=== PATIENT | male | born 1970 | race African-American/Black ===

== ENCOUNTER 2016-10-21 11:55 | Emergency (ER) | payer OTHER ==
[2016-10-21 12:07] VITALS: BP 126/83
[2016-10-21] MEDS ORDERED: Penicillin V Potassium 500 MG Tab PO ONE (13:03)
[2016-10-21] MEDS ORDERED: Ketorolac 60 MG/2 ML SDV IM ONE (13:03)
--- NOTE | 2016-10-21 13:09 | EDM.PDOC ---
ED HPI GENERAL MEDICAL PROBLEM - General Chief Complaint: ENT Problem Stated Complaint: DENTAL COMPLAINT Time Seen by Provider: 10/21/16 12:55 Source of Information: Reports: Patient History Limitations: Reports: No Limitations - History of Present Illness INITIAL COMMENTS - FREE TEXT/NARRATIVE: Patient is a 46-year-old male who presents to the ED complaining of right-sided jaw facial pain. Patient states he was evaluated by a dentist yesterday with diagnosis of a cracked tooth. He is scheduled to have this filled this coming Sunday. States the pain started this past Sunday and has progressively getting worse. Dentist did not see any infection present. He was told to go home and take Advil for discomfort. He has been taking this religiously. States the pain is sharp in nature intermittent comes on quickly and lasting for about 5 minutes. He has no history of trigeminal neuralgia. There is no swelling to his face or gumline. He has no documented fever. Pain currently is a 0 out of 10. With admission to the ED pain was a 10 out of 10. He has missed work today because of the discomfort. He is looking for an antibiotic to treat a potential infection. He has no additional past medical history and currently taking medications. Right Mouth Pain Score (Numeric/FACES): 10 - Related Data Allergies Allergy/AdvReac Type Severity Reaction Status Date / Time No Known Allergies Allergy Verified 10/21/16 12:06 Home Meds: Home Meds Penicillin V Potassium [IJD: Penicillin V Potassium] 500 mg PO .EVERY 6 HOURS # 40 tab 10/21/16 [Rx] Past Medical History - Past Health History Medical/Surgical History: Denies Medical/Surgical History Social & Family History - Family History Family Medical History: Noncontributory - Tobacco Use Smoking Status *Q: Never Smoker - Recreational Drug Use Recreational Drug Use: No ED ROS ENT - Review of Systems Review Of Systems: ROS reveals no pertinent complaints other than HPI. ED EXAM, ENT - Physical Exam Exam: See Below Exam Limited By: No Limitations General Appearance: Alert, WD/WN, No Apparent Distress Eye Exam: Bilateral Eye: PERRL Ears: Hearing Grossly Normal Nose: Normal Inspection, Normal Mucousa, No Blood Mouth/Throat: Normal Inspection, Normal Gums, Normal Lips, Normal Oropharynx, Dental Pain (#30 tooth has pain with gentle pressure with tongue depressor. Gumline is free of any swelling. Minimal dental decay present. #31 tooth is missing implant present. No other out of maladies noted side. Mild pain with palpation along gumline. No facial swelling present.). No: Throat Swelling, Tongue Swelling, Tonsillar Erythema, Tonsillar Exudates, Tonsillar Swelling, Trismus, Uvular Deviation Head: Atraumatic, Normocephalic Neck: Normal Inspection, Supple, Non-Tender, Full Range of Motion Respiratory/Chest: No Respiratory Distress, No Accessory Muscle Use Cardiovascular: Normal Peripheral Pulses, Regular Rate, Rhythm Neurological: Alert, Oriented, CN II-XII Intact, Normal Cognition, No Motor/ Sensory Deficits Psychiatric: Normal Affect, Normal Mood Skin: Warm, Dry, Intact, Normal Color Course - Vital Signs Last Recorded V/S: Last Vital Signs Temp 97.8 F 10/21/16 12:02 Pulse 86 10/21/16 12:02 Resp 16 10/21/16 12:02 BP 126/83 10/21/16 12:02 Pulse Ox 100 10/21/16 12:02 - Orders/Labs/Meds Meds: Medications Discontinued Medications Generic Name Dose Route Start Last Admin Trade Name Jasenq PRN Reason Stop Dose Admin Ketorolac Tromethamine 60 mg 10/21/16 13:03 10/21/16 13:12 Toradol IM 10/21/16 13:04 60 mg ONETIME ONE Administration Penicillin V Potassium 500 mg 10/21/16 13:03 10/21/16 13:15 Veetids PO 10/21/16 13:04 500 mg ONETIME ONE Administration - Re-Assessments/Exams Free Text/Narrative Re-Assessment/Exam: With history of sudden onset of discomfort and diagnosis of dental cavity requiring filling. Will go ahead and treat the patient with Toradol 60 mg IM and also penicillin 500 mg by mouth here in the ED. Symptoms are concerning for trigeminal neuralgia. Patient refuses any pain medications due to the side effect of becoming dizzy. Will wait on treating for trigeminal neuralgia at this point. He will have to with PCP at the [facility] this coming week after feeling has been completed. He will take Tylenol and ibuprofen in alternating fashion for pain. Including a prescription for penicillin provided. Departure - Departure Time of Disposition: 13:09 Disposition: Home, Self-Care 01 Condition: Good Clinical Impression: Dental caries, Pain due to dental caries - Discharge Information Prescriptions: Penicillin V Potassium [IJD: Penicillin V Potassium] 500 mg PO .EVERY 6 HOURS # 40 tab Instructions: Tooth Injuries, [id number] Referrals: PCP,None [Primary Care Provider] - Forms: ED Department Discharge, ED Return to Work/School Form Additional Instructions: Take the penicillin as prescribed. For pain alternate treatment with Tylenol 650 mg every 4-6 hours and ibuprofen 600 mg every 6 hours. Push the fluids and take medications with food. Keep appointment with dentist to have a filling repaired. If pain persists thereafter follow-up with a primary care provider at [facility] for reevaluation. Symptoms may be associated with trigeminal neuralgia, although low probability. Return to ED for any new or worsening symptoms.
== END 2016-10-21 13:20 | disposition home or self-care (01) ==
LOC: JD.ED 11:55
DX: K02.9 Dental caries, unspecified (principal)
CPT/HCPCS: 96372; 99283; A9270; J1885

== ENCOUNTER 2016-10-22 17:08 | Emergency (ER) | payer OTHER | END 2016-10-22 17:20 | disposition left against medical advice (07) | LOC: JD.ED 17:08 | DX: Z53.21 Procedure and treatment not carried out due to patient leaving prior to being seen by health care provider (principal) ==

== ENCOUNTER 2016-10-22 18:05 | Emergency (ER) | payer OTHER ==
[2016-10-22 19:03] VITALS: BP 146/91
--- NOTE | 2016-10-22 19:55 | EDM.PDOC ---
ED HPI GENERAL MEDICAL PROBLEM - General Chief Complaint: ENT Problem Stated Complaint: DENTAL COMPLAINT Time Seen by Provider: 10/22/16 19:17 Source of Information: Reports: Patient, Old Records, RN Notes Reviewed History Limitations: Reports: No Limitations - History of Present Illness INITIAL COMMENTS - FREE TEXT/NARRATIVE: The patient states that he developed a lower right toothache on Sunday, 2016. It was worse the following day. He was seen by a dentist on Sunday, 2016, where he was told that he had a cracked tooth, determined by x-rays. According to the patient, the dentist did not feel that the patient had a dental infection. The patient is currently scheduled to follow-up with the dentist on 10/24/2016. The patient was then seen in this ED yesterday, 10/21/2016 because of worsening pain. Although no obvious dental infection was found, the patient was started on penicillin 500 mg QID, with the Tylenol for pain relief. He now returns to the ED with pain not only to his lower right molar, but to the upper portion of his mouth, and even to the left side, since Sunday night, /Sunday morning, 10/21/2016. He also complains of pain radiating to his right ear since 10/21/2016. The pain is made better if he applies ice to his lower right molar, and if he is upright. He states that his symptoms are worse if he lies down, making sleep difficult. The pain is made worse by eating anything hot. No prior similar symptoms. The patient does not have a PCP. Right Lower Pain Score (Numeric/FACES): 7 - Related Data Allergies Allergy/AdvReac Type Severity Reaction Status Date / Time No Known Allergies Allergy Verified 10/22/16 18:18 Home Meds: Home Meds Penicillin V Potassium [IJD: Penicillin V Potassium] 500 mg PO .EVERY 6 HOURS # 40 tab 10/21/16 [Rx] Past Medical History - Past Surgical History HEENT Surgical History: Reports: Oral Surgery ([place] teeth extraction) Male Surgical History: Reports: Circumcision Social & Family History - Family History Family Medical History: Noncontributory - Tobacco Use Smoking Status *Q: Never Smoker - Caffeine Use Caffeine Use: Reports: None - Alcohol Use Alcohol Use History: No - Recreational Drug Use Recreational Drug Use: No - Living Situation & Occupation Living situation: Reports: Single, Alone 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) ED ROS ENT - Review of Systems Review Of Systems: See Below Constitutional: Reports: No Symptoms HEENT: Reports: Dental Pain (as per the HPI) Respiratory: Reports: No Symptoms Cardiovascular: Reports: No Symptoms Endocrine: Reports: No Symptoms GI/Abdominal: Reports: Constipation : Reports: No Symptoms Musculoskeletal: Reports: No Symptoms Skin: Reports: No Symptoms Neurological: Reports: No Symptoms Psychiatric: Reports: No Symptoms Hematologic/Lymphatic: Reports: No Symptoms Immunologic: Reports: No Symptoms ED EXAM, ENT - Physical Exam Exam: See Below Exam Limited By: No Limitations General Appearance: Alert, WD/WN, No Apparent Distress Eye Exam: Bilateral Eye: Normal Inspection Ears: Normal External Exam, Normal Canal, Hearing Grossly Normal, Normal TMs Nose: Normal Inspection, Normal Mucousa, No Blood Mouth/Throat: Normal Inspection, Normal Gums, Normal Lips, Normal Oropharynx, Other (Tooth #1 absent. Tooth #14 absent. Tooth #19 absent. Teeth #29, 30 with no obvious abnormality. No tenderness to percussion, and no gingival swelling, pointing, or tenderness. Tooth #31 with a dental implant stud.) Head: Atraumatic, Normocephalic Neck: Normal Inspection, Supple, Non-Tender, Full Range of Motion. No: Lymphadenopathy (L), Lymphadenopathy (R) Course - Vital Signs Last Recorded V/S: Last Vital Signs Temp 36.6 C 10/22/16 18:59 Pulse 70 10/22/16 18:59 Resp 16 10/22/16 18:59 BP 146/91 H 10/22/16 18:59 Pulse Ox 98 10/22/16 18:59 - Re-Assessments/Exams Free Text/Narrative Re-Assessment/Exam: 10/22/16 19:50 The cause of the patient's right lower dental pain, involving teeth #29 and 30, which has now spread to his entire mouth, and extends to his right ear, is unclear. The fact that he derives some benefit with ice and being upright suggests a dental infection, however, I see no gingival swelling or pointing, his teeth are not tender to percussion, and he tells me that dental x-rays performed 2 days ago, 10/20/2016, did not find an infection. If an occult infection is present, the patient is already on the appropriate antibiotic. I do not have any other recommendations for the patient at this time. He is to follow-up with his dentist this coming 10/24/2016. Departure - Departure Time of Disposition: 19:52 Disposition: Home, Self-Care 01 Condition: Good Clinical Impression: Dentalgia - Discharge Information Instructions: Dental Caries Referrals: PCP,None [Primary Care Provider] - Forms: ED Department Discharge Additional Instructions: You were seen in the emergency room for a lower right toothache, with the pain is spreading to your right ear, and the remainder of your mouth. The fact that you get some relief with ice and being upright suggests an infection, however, on examination, no abnormalities were found, such as a swollen gum, and no tooth tenderness. The cause of your pain is not clear. We recommend you continue to suck on ice as needed, and consider using an oral numbing agent, such as Orajel or Anbesol. Continue to take [id number] Tylenol as needed. Continue to take the previously prescribed penicillin 500 mg 1 tablet every 6 hours, as prescribed. Follow-up with your dentist at your previously scheduled appointment this coming 10/24/2016. If any other problems, please do not hesitate to return to the ER.
== END 2016-10-22 20:00 | disposition home or self-care (01) ==
LOC: JD.ED 18:05
DX: K08.89 Other specified disorders of teeth and supporting structures (principal)
CPT/HCPCS: 99282; 99283